=== PATIENT | female | born 1980 | race Caucasian/White ===

== ENCOUNTER 2019-04-29 23:35 | Outpatient (CLI) | payer SELFPAY ==
[2019-04-30] MEDS ORDERED: HYDROXYZINE PAMOATE 50 MG CAPSULE ONE (02:10)
[2019-04-30 02:18] LABS: AMORPHOUS SEDIMENT,URINE 1+ /HPF; APPEARANCE,URINE TURBID; BILIRUBIN,URINE NEGATIVE (NEGATIVE); COLOR,URINE YELLOW; GLUCOSE, URINE NEGATIVE (NEGATIVE); KETONES,URINE NEGATIVE (NEGATIVE); LEUKOCYTE ESTERASE,URINE NEGATIVE (NEGATIVE); NITRITE,URINE NEGATIVE (NEGATIVE); PROTEIN,URINE 30 mg/dL (NEGATIVE); URINE SPECIFIC GRAVITY 1.031; UROBILINOGEN,URINE NEGATIVE mg/dL (<2.0)
[2019-04-30] MEDS ORDERED: HYDROXYZINE PAMOATE 50 MG CAPSULE PO ONE (02:30)
[2019-04-30 02:43] LABS: URINE AMPHETAMINES SCREEN NEGATIVE; URINE BARBITURATES SCREEN NEGATIVE; URINE BENZODIAZEPINES SCREEN NEGATIVE; URINE MARIJUANA (THC) SCREEN NEGATIVE; URINE METHADONE SCREEN NEGATIVE; URINE PHENCYCLIDINE SCREEN NEGATIVE
--- NOTE | 2019-04-30 03:06 | Non Stress Test Report ---
Non Stress Test Datetime Report Generated by CPN: 04/30/2019 03:06 DEMOGRAPHIC EGA NST: 32.6 INDICATION Indication for Study (NST) Other: Abdominal pain - uterine window MONITORING Monitor Explained: Monitor Explained; Test Explained; Patient Verbalized Understanding Time on Monitor: 04/30/2019 02:24 Time off Monitor: 04/30/2019 02:52 NST Duration: 28 NST INTERVENTIONS NST Interventions: PO Hydration Physician Notified NST: Dr. Browne BABY A: [id number] BABY A Movement : Present Contraction Frequency : None FHR Baseline : 110 Accelerations : 15X15 Decelerations : None Variability : Moderate 6-25bpm NST Review: Meets Criteria for Reactive NST NST Review and Verified By : Pieter Bellavance RN NST Results: Reactive NST REPORT Report Trigger: Send Report
[2019-04-30 03:24] LABS: URINE COCAINE SCREEN NEGATIVE
== END 2019-04-30 03:04 | disposition home or self-care (01) ==
LOC: LC 23:35
PROVIDERS: ATTEND Obstetrics & Gynecology
PROC: 4A1HXCZ Monitoring of Products of Conception, Cardiac Rate, External Approach (ICD-10-PCS; principal; 2019-04-29)
DX: O47.03 False labor before 37 completed weeks of gestation, third trimester (principal); Z3A.32 32 weeks gestation of pregnancy
CPT/HCPCS: 59025; 80307; 81001